=== PATIENT | female | born 1990 | race Caucasian/White ===

== ENCOUNTER 2021-04-16 14:40 | Outpatient (CLI) | payer OTHER, SELFPAY ==
--- NOTE | 2021-04-16 14:46 | USCV_ITS ---
Asha Arrington Age: 31 Gender: F : 1990 Exam Date: 04/16/2021 15:07 Ordering Phys: Anurag Camp MD Technologist: Exam Location: [facility] – [place] Indication: RLE edema/calf pain HISTORY: RLE swelling, calf pain PROCEDURES: On the right side, the common femoral, superficial femoral, profunda femoral, popliteal, posterior tibial, greater saphenous veins and the peroneal trunk were identified and interrogated in the standard fashion. These veins were found to be easily compressible with spontaneous blood flow. FINDINGS: Thrombus is noted in the right lesser saphenous vein. Normal 2-D Doppler and augmentation and compressibility throughout the lower extremity venous structures. Additional imaging through the proximal calf veins also reveals no thrombus. Limited evaluation of the greater saphenous vein is patent with no thrombus.. CONCLUSIONS No DVT right lower extremity. Superficial thrombophlebitis right lesser saphenous vein. Dr. Vandana Regalado DO (Electronically Signed) Final Date: 16 April 2021 15:38 S
== END 2021-04-16 14:41 | disposition home or self-care (01) ==
LOC: RAD 14:43
PROVIDERS: PCP Family Medicine; Visit Provider Family Medicine
DX: R60.0 Localized edema (principal); M79.661 Pain in right lower leg; I80.01 Phlebitis and thrombophlebitis of superficial vessels of right lower extremity
CPT/HCPCS: 93971

== ENCOUNTER → 2022-04-08 12:10 | Outpatient (BNVA) | payer OTHER, SELFPAY | PROVIDERS: PCP Family Medicine; Visit Provider Clinical Nurse Specialist Adult Health | DX: E03.9 Hypothyroidism, unspecified (principal) | CPT/HCPCS: 84439; 84443; 84481 ==

== ENCOUNTER → 2023-05-11 11:36 | Outpatient (BNVA) | payer OTHER, SELFPAY | PROVIDERS: PCP Family Medicine; Visit Provider Family Medicine | DX: E03.9 Hypothyroidism, unspecified (principal) | CPT/HCPCS: 84439; 84443 ==